=== PATIENT | male | born 1990 | race Two or more races ===

== ENCOUNTER 2021-01-10 11:19 | Emergency (ER) | payer SELFPAY ==
[~2021-01-10] VITALS: Ht 162.6 cm; Wt 66.4 kg
[2021-01-10] MEDS ORDERED: LIDOCAINE 1%/EPI 1:100,000 20 ML VIAL. INJ ONE (12:30)
[2021-01-10] MEDS ORDERED: DIPH,PERTUSS(ACELL),TET VAC/PF 0.5 ML SYRINGE. VAX IM ONE (12:30)
--- NOTE | 2021-01-10 14:52 | PHYS DOC ---
Past Medical History Past Surgical History: No Surgical History (BENJA QUINTANILLA APRN) Smoking Status: Never Smoker Alcohol Use: None (BENJA QUINTANILLA APRN) General Adult EDM: Chief Complaint: LACERATION/AVULSION HPI: HPI: Patient is a 30 year male patient presenting to the ED today complaining of laceration to the left thigh that occurred after he accidentally cut himself with a knife while opening a box. 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 [] Musculoskeletal: Denies back pain or joint pain. [] Integument: Reports left ear laceration Neurologic: Denies headache, focal weakness or sensory changes. [] Psychiatric: Denies depression or anxiety. [] (BENJA QUINTANILLA APRN) Heart Score: C/O Chest Pain: N/A Risk Factors: Risk Factors: DM, Current or recent (<one month) smoker, HTN, HLP, family history of CAD, obesity. Risk Scores: Score 0 - 3: 2.5% MACE over next 6 weeks - Discharge Home Score 4 - 6: 20.3% MACE over next 6 weeks - Admit for Clinical Observation Score 7 - 10: 72.7% MACE over next 6 weeks - Early Invasive Strategies (BENJA QUINTANILLA APRN) Current Medications: Current Medications Medications (Trade) Dose Ordered Sig/Raza Start Time Stop Time Status Last Admin Dose Admin Diphtheria/ Tetanus/Acell Pertussis (ADACEL TDap SYRINGE) 0.5 ml ONCE ONCE 01/10/21 12:30 01/10/21 12:31 DC Lidocaine/ Epinephrine (LIDOCAINE 1%-EPI 1:100,000 Multi-Dose) 20 ml 1X ONCE 01/10/21 12:30 01/10/21 12:31 DC 01/10/21 12:30 20 ML (BENJA QUINTANILLA APRN) Allergies: Allergies: Allergies Coded Allergies Type Severity Reaction Last Updated Verified No Known Drug Allergies 01/10/21 No (BENJA QUINTANILLA APRN) Physical Exam: PE: Constitutional: Well developed, well nourished, no acute distress, non-toxic appearance. []] Skin: Ventral aspect distal end of the left thigh with a laceration approximately 4 cm long. There is no obvious tendon involvement. Patient able to flex and extend the left knee with no difficulties. +2 left pedal pulse. Cap refill less than 2 seconds to left lower extremity. Back: No tenderness, no CVA tenderness. [] Extremities: No tenderness, no cyanosis, no clubbing, ROM intact, no edema. [] Neurologic: Alert and oriented X 3, normal motor function, normal sensory function, no focal deficits noted. [] Psychologic: Affect normal, judgement normal, mood normal. [] (BENJA QUINTANILLA APRN) Current Patient Data: Vital Signs: Vital Signs Date Time Temp Pulse Resp B/P (MAP) Pulse Ox O2 Delivery O2 Flow Rate FiO2 01/10/21 12:00 98.3 85 18 126/64 100 98.3 (BENJA QUINTANILLA APRN) EKG: EKG: [] (BENJA QUINTANILLA APRN) Radiology/Procedures: Radiology/Procedures: Laceration/Wound Repair Wound Location: Left thigh Wound's Depth, Shape: Horizontal Wound Length (cm): Approximately 4 cm Wound Explored: clean Irrigated w/ Saline (ccs): 250ml Betadine Prep?: Y Anesthesia: Lidocaine with epinephrine Volume Anesthetic (ccs): Approximately 6 cc Wound Repaired With: Prolene Suture Size/Type: 4.0/interrupted suture Number of Sutures: 10 Progress wound was covered with nonstick dressing (BENJA QUINTANILLA APRN) Course & Med Decision Making: Course & Med Decision Making Pertinent Labs and Imaging studies reviewed. (See chart for details) This is a 30-year-old male patient presented to the ED today with laceration to the left thigh that was closed by me as noted in procedures. Tetanus is up-to-date. Wound care instructions and return precautions provided (BENJA QUINTANILLA APRN) Course & Med Decision Making I have reviewed and was available for consultation in the emergency department for this patient that was seen by midlevel provider. Agree with plan Stewart Restrepo DO (STEWART RESTREPO DO) Radhika Disclaimer: Radhika Disclaimer: This electronic medical record was generated, in whole or in part, using a voice recognition dictation system. (BENJA QUINTANILLA APRN) Departure Departure Impression: Primary Impression: Leg laceration Qualified Codes: S81.812A - Laceration without foreign body, left lower leg, initial encounter Disposition: HOME / SELF CARE / HOMELESS Condition: STABLE Referrals: NO PCP (PCP) Follow-up with the emergency room in 7 days for stitches to be removed Patient Instructions: Laceration Care, Adult, [id number] Additional Instructions: You have a laceration on the left thigh that was closed with stitches. You can shower and wash the area once or twice a day. Do not soak the area. Please apply Neosporin to the area twice a day for 7 days. Please take Tylenol or Motrin as needed for pain. Please come back to the emergency room in 7 days for stitches to be removed BENJA QUINTANILLA APRN Jan 10, 2021 14:51 STEWART RESTREPO DO Jan 10, 2021 15:31
[2021-01-10 15:29] VITALS: BP 115/66
== END 2021-01-10 15:29 | disposition home or self-care (01) ==
LOC: ER 11:19
DX: S71.112A Laceration without foreign body, left thigh, initial encounter (principal); W26.0XXA Contact with knife, initial encounter; Y93.89 Activity, other specified; Y92.89 Other specified places as the place of occurrence of the external cause; Y99.8 Other external cause status
CPT/HCPCS: 12002; 99282; J3490; 99283